=== PATIENT | male | born 1980 | race Caucasian/White ===

== ENCOUNTER 2023-01-16 07:13 | Outpatient (CLI) | payer SELFPAY | END 2023-01-16 07:14 | disposition critical access hospital (66) | LOC: EMS 07:13 | DX: R51.9 Headache, unspecified (principal); R45.1 Restlessness and agitation; R46.89 Other symptoms and signs involving appearance and behavior ==

== ENCOUNTER 2023-01-16 07:47 | Emergency (ER) | payer SELFPAY ==
[2023-01-16 08:01] VITALS: BP 119/87
[2023-01-16] MEDS ORDERED: DROPERIDOL 5 MG/2 ML VIAL IM STA (08:05)
[2023-01-16] MEDS ORDERED: KETOROLAC 60 MG/2 ML VIAL IM STA (08:05)
[2023-01-16] MEDS ORDERED: diphenhydrAMINE INJ 50 MG/ML VIAL IM STA (08:05)
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
[2023-01-16] MEDS ORDERED: ONDANSETRON ODT 4 MG TABLET TL STA (08:19)
[2023-01-16] MEDS ORDERED: SUMAtriptan 6 MG/0.5 ML VIAL SUBQ STA (08:19)
== END 2023-01-16 10:02 | disposition home or self-care (01) ==
LOC: EDUNIT# → ED 07:47
DX: R51.9 Headache, unspecified (principal); R45.6 Violent behavior; F17.200 Nicotine dependence, unspecified, uncomplicated
CPT/HCPCS: 99283; J1200; Q0162